=== PATIENT | male | born 1995 | race Caucasian/White ===

== ENCOUNTER 2019-11-30 03:27 | Emergency (ER) | payer OTHER ==
[~2019-11-30] VITALS: Ht 185.4 cm; Wt 83.9 kg
[2019-11-30 05:57] VITALS: BP 118/58
== END 2019-11-30 06:15 | disposition home or self-care (01) ==
LOC: ER 03:27
DX: S51.812A Laceration without foreign body of left forearm, initial encounter (principal); F17.210 Nicotine dependence, cigarettes, uncomplicated; W13.8XXA Fall from, out of or through other building or structure, initial encounter; Y93.33 Activity, BASE jumping; Y92.098 Other place in other non-institutional residence as the place of occurrence of the external cause; Y99.8 Other external cause status